=== PATIENT | male | born 2000 | race Caucasian/White ===

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

== ENCOUNTER 2022-04-28 20:57 | Inpatient (IN) ==
[2022-04-28 22:15] LABS: Basophils # (auto) 0.04 K/uL (0-0.2); Basophils % (auto) 0.6 %; Eosinophils # (auto) 0.19 K/uL (0-0.50); Eosinophils % (auto) 2.7 %; Hematocrit (blood only) 42.7 % (40.1-51.0); Hemoglobin 15.3 g/dl (14.0-18.0); Immature Granulocytes # (auto) 0.01 K/uL (0.00-0.02); Immature Granulocytes % (auto) 0.1 %; Lymphocytes # (auto) 1.25 K/uL (1.2-3.4); Mean Corpuscular Hemoglobin 32.4 pg (25.0-34.0); Mean Corpuscular Hgb Conc 35.8 g/dL (32.0-36.0); Mean Corpuscular Volume 90.5 fL (80.0-100.0); Mean Platelet Volume 9.5 fL (9.4-12.4); Monocytes # (auto) 0.67 K/uL (0.24-0.82); Monocytes % (auto) 9.6 %; Platelet Count 218 K/uL (130-400); RDW Coefficient of Variation 11.7 % (11.5-14.5); RDW Standard Deviation 38.5 fL (36.4-46.3); Red Blood Count 4.72 M/uL (4.63-6.08); White Blood Count 6.96 K/ul (4.8-10.8)
[2022-04-28 22:53] LABS: Albumin Globulin Ratio 2.8 (0.9-2); Albumin Level 5.3 gm/dl (3.4-5.0); BUN Creatinine Ratio 8.8 (10-20); Bilirubin,Total 1.3 mg/dl (0.2-1.0); Calcium 10.4 mg/dl (8.5-10.1); Creatinine Clr Calc Pharmacy 115.9 ml/min; Est GFR (African American) 118.7 ml/min; Est GFR (Non-African American) 102.4 ml/min; Globulin 1.9 gm/dl (2.5-4.0); Total Protein 7.2 gm/dl (6.0-8.3)
[2022-04-29] MEDS ORDERED: diphenhydrAMINE 50 MG/ML VIAL IV STA (00:10)
[2022-04-29] MEDS ORDERED: ONDANSETRON INJ 2 MG/ML 2 ML VIAL IV STA ×2 (00:10→03:47)
[2022-04-29] MEDS ORDERED: SODIUM CHLORIDE 0.9% 1000ML 1,000 ML IV ONE (00:10)
--- NOTE | 2022-04-29 00:15 | Emergency Department Note ---
Impression & Plan Acute cholecystitis ED Provider Note Name: ABBI GOODRICH Age: 22 Sex: M Arrives Via: Walk-In Informant: Patient and his mother ED Provider: Arik Pereira MD Chief Complaint: Abdominal pain Impression: As per impressions above Medical Decision Makin-year-old male with a recent history of sobering up from alcohol and drug abuse arrives for evaluation of 1 week of epigastric/right upper quadrant abdominal pain that comes in waves. He was seen in ER a week ago and was told he had gallstones and sludge. Pain has continued and even worsen. On exam patient has epigastric/right upper quadrant tenderness palpation. His LFTs are slightly elevated. I obtained a CT scan of the abdomen pelvis which was read as periportal edema consistent with rapid hydration. I am concerned that this is actually infectious etiology. An ultrasound was obtained which is concerning for acute cholecystitis. I discussed the case with general surgery and they will bring him in for further management. He was given Mefoxin IV. Pain is controlled with IV fluids and some Zofran. He declined to have narcotic pain medications given his history. Prior Medical Record and Triage/Nursing Notes reviewed by Me Additional history obtained from chart and mother Differentials:Acute cholecystitis, bile duct obstruction, pancreatitis, gastritis, peptic ulcer disease, dissection, hepatitis, multiple other pathologies considered. Vital Signs: reviewed and remarkable for bradycardia Interventions: mefoxin IV, zofran iv, nss bolus Labs:Reviewed and remarkable for elevated lfts Imaging:CT as per stat rad was read as per portal edema. Ultrasound read per stat read is consistent with acute cholecystitis. Consults:Dr Roberto [place] Gen Surg Plan: Disposition:Hospitalization. Condition: Good History of Present Illness: 22-year-old gentleman arrives for evaluation of abdominal pain. Patient with essentially a week and a half of right upper quadrant abdominal pain that comes in waves. Primarily localized but does at times radiate through to his back. Associated with nausea and repetitive vomiting. He was seen in an ER in [place] last week diagnosed with gallstones and advised to follow-up with the surgeon. Patient notes that pain is gotten significantly worse since then. Not using any medications. Denies any falls, trauma, injuries. Tonight pain was so severe he came back to the ER. No fevers, chills, chest pain, shortness of breath, c urrent back pain, flank pain, lower abdominal pain, urinary/bowel symptoms, leg swelling, calf pain, rashes or any other signs or symptoms. No medications prior to arrival. Nothing makes better or worse. No previous abdominal surgeries. He does note a strong family history of gallbladder problems including a brother who had his gallbladder out when he was 6 months old. He states his father side also had some gallbladder cancer. ROS: See above HPI for pertinent positives & negatives. A total of 10 systems reviewed and were otherwise negative. Past Medical History:Alcohol and drug addiction Past Surgical History:No previous surgeries Family History:Brother with gallbladder removal at 6 months. Father side of family had colon cancer, gallbladder cancer, breast cancer. Social History:Lives with mother. Smokes cigarettes. Sober/clean for 1 month from alcohol/cocaine/meth addiction. Home Medications:No daily medications Allergies:No known drug allergies Vitals:Blood Pressure: 123/83, Pulse 44, RR 20, T 36.8C, O2 100% on RA Physical Exam: GENERAL: Patient is dehydrated appearing and in mild distress. EYES: No scleral icterus, unremarkable pupils. ENT: Mucous membranes moist, no nasal congestion. NECK: No masses appreciated, nomeningismus, trachea is midline. RESPIRATORY: No dyspnea. Clear to auscultation and equal bilaterally. No wheeze, no rhonchi. CARDIOVASCULAR: bradycardic.No murmurs, rubs, gallops appreciated. GASTROINTESTINAL: Epigastric & RUQ abdominal TTP. Otherwise abdomen soft, non- tender, no peritonitis.Bowel sounds positive.No masses appreciated. BACK: No midline tenderness, no CVA tenderness EXTREMITIES: Normal motion all extremities, no cyanosis, no edema. NEUROLOGIC: Alert and oriented, no acute motor or sensory deficits, no focal weakness, cranial nerves grossly intact. SKIN: No rash, no jaundice, no diaphoresis. PSYCH: Appropriate GCS: 15 ED Course: Times/Reassessments: Stable declines pain meds but agreeable to further IV fluids and Zofran. Agreeable to hospitalization Arik Pereira MD Past Med/Surg History Social History Smoking Status: Never smoker Tobacco Type: Cigarettes Preferred Language: Hungarian Feels Safe at Home: Yes Allergies Allergies Allergy/AdvReac Type Severity Reaction Status Date / Time No Known Allergies Allergy Unverified 01/01/20 15:37 Results & Data (ED) Vital Signs Vital Signs - 24 hr 04/28/22 21:06 04/28/22 23:15 04/29/22 01:00 Temperature 36.8 C Temperature Source Temporal Artery Scan Pulse Rate 57 L Pulse Rate [Apical] 44 L 41 L Respiratory Rate 18 20 17 Respiratory Effort / Characteristics Non-Labored Spontaneous Non-Labored Spontaneous Non-Labored Spontaneous Respiratory Depth Normal Normal Normal Respiratory Pattern Regular Regular Blood Pressure 121/78 Blood Pressure [Right Arm] 123/83 121/89 Blood Pressure Mean 92 Blood Pressure Mean [Right Arm] 96 99 Pulse Oximetry 98 20 L 99 Oxygen Delivery Method Room Air Room Air Sepsis Recent Fever Within 48 Hours No Sepsis New/Unexplained Change in Mental Status N/A Sepsis Action Taken by Nursing No Action Required 04/29/22 03:40 04/29/22 05:00 Temperature Temperature Source Pulse Rate Pulse Rate [Apical] 55 L 40 L Respiratory Rate 16 20 Respiratory Effort / Characteristics Respiratory Depth Respiratory Pattern Blood Pressure Blood Pressure [Right Arm] 120/83 125/82 Blood Pressure Mean Blood Pressure Mean [Right Arm] 95 96 Pulse Oximetry 98 98 Oxygen Delivery Method Room Air Room Air Sepsis Recent Fever Within 48 Hours Sepsis New/Unexplained Change in Mental Status Sepsis Action Taken by Nursing Laboratory Data Result diagrams: 04/29/22 05:54 04/29/22 05:54 Lab Results 04/28/22 04/28/22 04/29/22 Range/Units 22:09 22:09 05:05 WBC 6.96 (4.8-10.8) K/ul RBC 4.72 (4.63-6.08) M/uL Hgb 15.3 (14.0-18.0) g/dl Hct 42.7 (40.1-51.0) % MCV 90.5 (80.0-100.0) fL MCH 32.4 (25.0-34.0) pg MCHC 35.8 (32.0-36.0) g/dL RDW Std Deviation 38.5 (36.4-46.3) fL RDW Coeff of Annalise 11.7 (11.5-14.5) % Plt Count 218 (130-400) K/uL MPV 9.5 (9.4-12.4) fL Immature Gran % (Auto) 0.1 % Neut % (Auto) 69.0 % Lymph % (Auto) 18.0 % [place] % (Auto) 9.6 % Eos % (Auto) 2.7 % Baso % (Auto) 0.6 % Neut # (Auto) 4.80 (1.4-6.5) K/uL Lymph # (Auto) 1.25 (1.2-3.4) K/uL [place] # (Auto) 0.67 (0.24-0.82) K/uL Eos # (Auto) 0.19 (0-0.50) K/uL Baso # (Auto) 0.04 (0-0.2) K/uL Immature Gran # (Auto) 0.01 (0.00-0.02) K/uL Sodium 141 (136-145) mmol/L Potassium 4.0 (3.5-5.1) mmol/L Chloride 104 (98-107) mmol/L Carbon Dioxide 30 (21-32) mmol/L Anion Gap 7 (3-11) BUN 9 (6-23) mg/dl Creatinine 1.02 (0.6-1.4) mg/dl Est Cr Clr Drug Dosing 115.9 ml/min Est GFR ( Amer) 118.7 ml/min Est GFR (Non-Af Amer) 102.4 ml/min BUN/Creatinine Ratio 8.8 L (10-20) Glucose 93 (70-99(Fasting)) mg/dl Calcium 10.4 H (8.5-10.1) mg/dl Total Bilirubin 1.3 H (0.2-1.0) mg/dl AST 129 H (13-39) U/L ALT 91 H (7-52) U/L Alkaline Phosphatase 96 (34-104) U/L Total Protein 7.2 (6.0-8.3) gm/dl Albumin 5.3 H (3.4-5.0) gm/dl Globulin 1.9 L (2.5-4.0) gm/dl Albumin/Globulin Ratio 2.8 H (0.9-2) Lipase 38 (11-82) U/L SARS-CoV-2, RNA, NAAT NEGATIVE (NEGATIVE) 04/29/22 04/29/22 Range/Units 05:54 05:54 WBC 5.49 (4.8-10.8) K/ul RBC 4.57 L (4.63-6.08) M/uL Hgb 14.7 (14.0-18.0) g/dl Hct 41.4 (40.1-51.0) % MCV 90.6 (80.0-100.0) fL MCH 32.2 (25.0-34.0) pg MCHC 35.5 (32.0-36.0) g/dL RDW Std Deviation 39.0 (36.4-46.3) fL RDW Coeff of Annalise 11.8 (11.5-14.5) % Plt Count 212 (130-400) K/uL MPV 9.8 (9.4-12.4) fL Immature Gran % (Auto) 0.2 % Neut % (Auto) 67.7 % Lymph % (Auto) 17.3 % [place] % (Auto) 11.1 % Eos % (Auto) 3.3 % Baso % (Auto) 0.4 % Neut # (Auto) 3.72 (1.4-6.5) K/uL Lymph # (Auto) 0.95 L (1.2-3.4) K/uL [place] # (Auto) 0.61 (0.24-0.82) K/uL Eos # (Auto) 0.18 (0-0.50) K/uL Baso # (Auto) 0.02 (0-0.2) K/uL Immature Gran # (Auto) 0.01 (0.00-0.02) K/uL Sodium 141 (136-145) mmol/L Potassium 4.0 (3.5-5.1) mmol/L Chloride 108 H (98-107) mmol/L Carbon Dioxide 27 (21-32) mmol/L Anion Gap 6 (3-11) BUN 8 (6-23) mg/dl Creatinine 1.02 (0.6-1.4) mg/dl Est Cr Clr Drug Dosing 115.9 ml/min Est GFR ( Amer) 118.7 ml/min Est GFR (Non-Af Amer) 102.4 ml/min BUN/Creatinine Ratio 7.8 L (10-20) Glucose 96 (70-99(Fasting)) mg/dl Calcium 9.6 (8.5-10.1) mg/dl Total Bilirubin 2.5 H D (0.2-1.0) mg/dl AST 175 H (13-39) U/L ALT 165 H (7-52) U/L Alkaline Phosphatase 94 (34-104) U/L Total Protein 6.5 (6.0-8.3) gm/dl Albumin 4.7 (3.4-5.0) gm/dl Globulin 1.8 L (2.5-4.0) gm/dl Albumin/Globulin Ratio 2.6 H (0.9-2) Lipase 22 (11-82) U/L SARS-CoV-2, RNA, NAAT (NEGATIVE) Administered Medications Lactated Ringer's (Lr) 1,000 mls @ 125 mls/hr IV .Q8H ADDY Stop: 05/29/22 05:14 Last Admin: 04/29/22 06:38 Dose: 125 mls/hr Documented By: OMAIRA Discontinued Medications Diphenhydramine HCl (Diphenhydramine 50 Mg/Ml Vial) 50 mg IV NOW STA Stop: 04/29/22 00:11 Last Admin: 04/29/22 00:21 Dose: 50 mg Documented By: JOSH Sodium Chloride (Nss 1000ml) 1,000 mls @ 999 mls/hr IV .Q1H1M ONE Stop: 04/29/22 01:10 Last Infusion: 04/29/22 02:49 Dose: 0 mls/hr Documented By: Admin: 04/29/22 00:20 Dose: 999 mls/hr Documented By: JOSH Cefoxitin Sodium (Mefoxin) 2,000 mg in 60 mls @ 100 mls/hr IV NOW STA Stop: 04/29/22 05:19 Last Infusion: 04/29/22 05:39 Dose: 0 mls/hr Documented By: Admin: 04/29/22 05:03 Dose: 100 mls/hr Documented By: OMAIRA Ioversol (Ioversol 350 Mg 100ml Prefilled Syringe) 93 ml IV ONCE ONE Stop: 04/29/22 01:32 Last Admin: 04/29/22 01:32 Dose: 93 ml Documented By: CHINA Ondansetron HCl (Ondansetron Inj 2 Mg/Ml 2 Ml Vial) 4 mg IV NOW STA Stop: 04/29/22 00:11 Last Admin: 04/29/22 00:21 Dose: 4 mg Documented By: JOSH Ondansetron HCl (Ondansetron Inj 2 Mg/Ml 2 Ml Vial) 4 mg IV NOW STA Stop: 04/29/22 03:48 Last Admin: 04/29/22 03:53 Dose: 4 mg Documented By: OMAIRA Discharge Plan Visit Data Chief Complaint: Abdominal Pain Stated Complaint: ABDOMINAL PAIN, KIDNEY PAIN ED Provider: Arik Pereira Discharge Problem: Acute cholecystitis Forms Stand Alone Forms: [facility] Referrals Referrals: PCP,NO [Primary Care Provider] -
[2022-04-29] MEDS ORDERED: IOVERSOL 350 MG 100mL Prefilled Syringe IV ONE (01:31)
[2022-04-29] MEDS ORDERED: cefOXitin 2,000 MG/60 ML BAG IV STA (04:44)
[2022-04-29] MEDS ORDERED: MoRPHine SULFATE 4 MG/ML 1 ML CARP\\VIAL IV PRN ×2 (05:11→16:57)
--- NOTE | 2022-04-29 05:11 | History & Physical Report ---
Date of Service April 29, 2022 Assessment & Plan (1) Acute cholecystitis: Plan: Due to the patient's clinical presentation, labs, and imaging we will admit the patient to the hospital proceeding as follows: Provide analgesics provide antiemetics Provide hydration with IV fluids We will guidance adviser antibiotics. The treating emergency physician has already administered cefoxitin which we will continue We will maintain n.p.o. status We will repeat his labs including a CBC, CMP, and lipase Due to concern for cholecystitis noted on ultrasound I have tentatively added the patient to Dr. Mejia's schedule for a cholecystectomy and possible cholangiogram later today. Additional recommendations be forthcoming based on his repeat labs, operative findings, and his postoperative course. Will use SCDs for DVT prevention, no chemical means due to planned surgery He will be a level 1 full code History of Present Illness Chief Complaint: Abdominal pain Primary Care Provider: NO PCP This is a 22-year-old male who presented to [facility] emergency department secondary to abdominal pain. Patient notes that the pain is nonradiating and primarily located the epigastric and right upper quadrant. He does not note any modifying factors other than that it seems to be worse after eating. The patient notes that he has noted some postprandial pain for approximately 1 month. He notes that this issue has been getting worse over the past week and became unbearable over the past 24 hours prompting his visit to the emergency department. He does note that he was previously in [place] where he did have similar complaints and he did have a gallbladder ultrasound at which time he was told he had gallstones. Patient denies any prior history of abdominal surgeries. In the emergency department the patient had labs and imaging which I independently reviewed. A CT scan of the abdomen pelvis was performed. This showed patient had mild periportal edema with a normal-appearing appendix. Patient had a gallbladder ultrasound that showed that the gallbladder was distended with sludge and tiny gallstones and pericholecystic edema. The gallbladder wall was thickened to approximately 6 mm and a positive sonographic Rodrigues sign was noted. The common bile duct was not noted to be dilated. The interpreting radiologist felt that this represented acute cholecystitis without biliary ductal dilatation. CBC revealed white blood cell count, hemoglobin, hematocrit, platelet count were all normal. Chemistry profile showed sodium, potassium, BUN, and creatinine were normal. Patient's total bilirubin is elevated at 1.3. His AST and ALT were elevated at 129 and 91. Alkaline phosp hatase was normal. There is no elevation of patient's lipase. A COVID test has been ordered and is pending. 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 He notes that he has not consumed these substances and has been clean for approximately 6 months. At the time of my interview the patient was resting comfortably in bed and he was in no distress. Concerning past medical history other than history of substance abuse patient denies any additional medical problems. Patient denies any past surgical history. Patient has a history of substance abuse as noted above. Allergies Allergy/AdvReac Type Severity Reaction Status Date / Time No Known Allergies Allergy Unverified 01/01/20 15:37 Past Med/Surg History Medical History History of alcohol abuse History of cocaine abuse Smoker Social History Tobacco Type: Cigarettes Preferred Language: Belarusian Feels Safe at Home: Yes Review of Systems Constitutional: no fever and no chills Eyes: + corrective lenses; no eye pain Ear, Nose, Mouth, Throat: no ear pain Respiratory: no cough and no dyspnea Cardiovascular: no chest pain Gastrointestinal: + abdominal pain, + nausea and + vomiting Genitourinary: no dysuria Musculoskeletal: no back pain Integumentary: no rash Neurologic: no localized weakness Physical Exam Constitutional: WD/WN, vitals as above Eyes: + anicteric sclerae Wears glasses ENMT: Ears: no hearing impairment and no external ear abnormality Sublingual jaundice is absent Neck: trachea midline Respiratory: normal respiratory effort, lungs clear to auscultation Cardiovascular: Rate/Rhythm: regular rate and regular rhythm Gastrointestinal (Abdomen): Abdomen is soft, nondistended, nonrigid. Bowel sounds are present. There is no rebound tenderness or guarding but patient did have pain with palpation in the right upper quadrant. Musculoskeletal: No calf tenderness Skin: no rashes Neurologic: moves all extremities Psychiatric: A+Ox3, euthymic affect Results & Data Results & Data ([facility]) Vital Signs (Past 12 Hours) Vital Signs Temp Pulse Pulse Resp BP BP Pulse Ox 04/29/22 03:40 55 L 16 120/83 98 04/29/22 01:00 41 L 17 121/89 99 04/28/22 23:15 44 L 20 123/83 20 L 04/28/22 21:06 36.8 C 57 L 18 121/78 98 O2 Del Method 04/29/22 03:40 Room Air 04/29/22 01:00 04/28/22 23:15 Room Air 04/28/22 21:06 Room Air Supervising Physician Co-Signing Physician Notes I personally saw and evaluated the patient with Thanh Campoverde PA-C and agree with the assessment and plan. 22-year-old male with acute cholecystitis, elevated LFTs concerning for choledocholithiasis Admit to surgery CT and ultrasound images and results personally viewed by me Keep n.p.o., give antibiotics, GI consult for his elevated LFTs Pain and nausea control as needed We will plan on laparoscopic cholecystectomy, possible open, possible intraoperative cholangiogram today Consent was obtained, risk discussed including bleeding, infection, bile leak, ductal injury PG Care Time/CCT Total # of Minutes Spent Total Time Spent with Patient: Total time spent is greater than 50% in coordination of care (as documented) at patient's floor/unit and/or counseling patient: Coding Level of Care Code 21300 Initial Inpt Care Lvl 3 Diagnoses Acute cholecystitis K81.0
[2022-04-29 06:11] LABS: Basophils # (auto) 0.02 K/uL (0-0.2); Basophils % (auto) 0.4 %; Eosinophils # (auto) 0.18 K/uL (0-0.50); Eosinophils % (auto) 3.3 %; Hematocrit (blood only) 41.4 % (40.1-51.0); Hemoglobin 14.7 g/dl (14.0-18.0); Immature Granulocytes # (auto) 0.01 K/uL (0.00-0.02); Immature Granulocytes % (auto) 0.2 %; Lymphocytes # (auto) 0.95 K/uL (1.2-3.4); Lymphocytes % (auto) 17.3 %; Mean Corpuscular Hemoglobin 32.2 pg (25.0-34.0); Mean Corpuscular Hgb Conc 35.5 g/dL (32.0-36.0); Mean Corpuscular Volume 90.6 fL (80.0-100.0); Mean Platelet Volume 9.8 fL (9.4-12.4); Monocytes # (auto) 0.61 K/uL (0.24-0.82); Monocytes % (auto) 11.1 %; Neutrophils # (auto) 3.72 K/uL (1.4-6.5); Neutrophils % (auto) 67.7 %; Platelet Count 212 K/uL (130-400); RDW Coefficient of Variation 11.8 % (11.5-14.5); Red Blood Count 4.57 M/uL (4.63-6.08); White Blood Count 5.49 K/ul (4.8-10.8)
[2022-04-29 06:37] LABS: Albumin Globulin Ratio 2.6 (0.9-2); Albumin Level 4.7 gm/dl (3.4-5.0); BUN Creatinine Ratio 7.8 (10-20); Bilirubin,Total 2.5 mg/dl (0.2-1.0); Calcium 9.6 mg/dl (8.5-10.1); Creatinine Clr Calc Pharmacy 115.9 ml/min; Est GFR (African American) 118.7 ml/min; Est GFR (Non-African American) 102.4 ml/min; Globulin 1.8 gm/dl (2.5-4.0); Total Protein 6.5 gm/dl (6.0-8.3)
[2022-04-29] MEDS: LACTATED RINGER'S 1,000 ML IV SCH ×3 (06:38→18:18)
--- NOTE | 2022-04-29 07:45 | Ultrasound Report ---
ULTRASOUND RIGHT UPPER QUADRANT ABDOMEN CLINICAL HISTORY: Right upper quadrant abdominal pain. COMPARISON STUDY: Abdominal CT dated 04/29/2022. TECHNIQUE: Real-time, grayscale, and color flow sonography of the right upper quadrant of the abdomen was performed. Images are reviewed in the transverse and longitudinal planes. FINDINGS: Liver: The liver is top normal in size. Echotexture is normal. There is no intrahepatic biliary ducta l dilatation. The main portal vein is patent. Gallbladder: The gallbladder is distended and filled with sludge and stones. The gallbladder wall is thickened and edematous measuring up to 6 mm. There is trace pericholecystic fluid. A sonographic Mur phy's sign is reportedly present. The common bile duct measures up to 0.4 cm in diameter. Pancreas: Visualized portions of the pancreatic head and body are normal in appearance. The splenic v ein is patent. Right kidney: Survey images of the right kidney demonstrate normal size and echotexture. There is no hydronephrosis. Ascites: None. IMPRESSION: 1. Cholelithiasis and biliary sludge within a distended gallbladder. Sonographic findings are typical for acute cholecystitis. Clinical correlation will be required. If clinically warranted a nuclear he patobiliary scan would be confirmatory. 2. There is no intra or extrahepatic biliary ductal dilatation. ACT 112: Negative or not required by law. Electronically signed by: Fabricio Baltazar M.D. 04/29/2022 7:44 AM
--- NOTE | 2022-04-29 07:52 | CT Scan Report ---
ABDOMEN AND PELVIS CT WITH IV CONTRAST CT DOSE: 304.23 mGy.cm HISTORY: Right upper quadrant abdominal pain, vomiting, known gallstones TECHNIQUE: Multiaxial CT images of the abdomen and pelvis were performed following the use of intrave nous contrast. A dose lowering technique was utilized adhering to the principles of ALARA. COMPARISON STUDY: Abdomen and pelvis CT 01/01/2020. FINDINGS: The lung bases are clear. No pneumoperitoneum. No pneumatosis. Bilateral L5 spondylolysis. Mild periportal edema noted within the liver. There is also trace pericholecystic fluid adjacent to t he hepatic surface. This also favors the periportal edema. These findings are similar to the prior st udy. No gallbladder wall thickening. No hepatic or splenic masses. The adrenal glands and pancreas un remarkable. Stable 6 mm hypodense lesion within the left kidney. This is technically too small to radha racterize but favors a cyst given the stability. No hydronephrosis. There is a punctate calcification within the right deep pelvis on image 417 which favors a phlebolith. A distal ureteral stone is not excluded. No bladder wall thickening. No pelvic free fluid. No bowel wall thickening or obstruction. Normal appendix. No retroperitoneal lymphadenopathy. Normal caliber abdominal aorta. The main portal vein is patent. IMPRESSION: 1. Mild periportal edema and trace pericholecystic fluid, unchanged. This could be due to overhydrati on. Recommend correlation with LFTs. This is similar to the prior study. 2. No bowel wall thickening or obstruction. 3. Normal appendix. 4. There is a punctate calcification within the right deep pelvis which favors a phlebolith. No right -sided hydronephrosis. A distal ureteral stone is considered less likely but not entirely excluded. R ecommend correlation for right flank pain. ACT 112: Negative or not required by law. Electronically signed by: Bienvenido Hamilton M.D. 04/29/2022 7:50 AM
--- NOTE | 2022-04-29 09:44 | Gastrointestinal Consultation ---
Date of Consultation April 29, 2022 Assessment & Plan (1) Acute cholecystitis: 22 year old male admitted with abdominal pain, nausea, imaging concerning for gallstones, distended gallbladder but no report of biliary ductal dilation. GI asked to evaluate for elevated LFTs w/ Tbili 2.5 AST/ALT 175/165. Appears patient is scheduled for CCY today NPO As no evidence of biliary dilation on imaging would recommend either - MRCP today - IOC Pending results, will tentatively list ERCP for Thursday Analgesia PRN Antiemetics PRN Thank you for allowing us to participate in the care of this patient. Please call with any acute changes, questions or concerns. Please see addendum below with additional recommendation from my supervising physician. Supervising Physician Co-Signing Physician Notes I have personally seen and examined the patient with DINAH Johnson. Her note reflects my exam and findings. I agree with her impression and plan. Will await results of betty and post op course to determine need for ERCP. Cipriano Dumont M.D. History of Present Illness Reason for Consultation: elevated LFTs Requesting Physician: Roberto Attending Physician: William Mejia, DO History of Present Illness 22 year old male with history of ETOH abuse, admitted through the ED with abdominal pain. GI was consulted for elevated LFTs. Of note, general surgery has surgical plan today for CCY per patient/family. Pt is drowsy this AM and provides limited history but has intermittent abd pain for at least a month. This became worse, sought ED care. Pain is epigastric, RUQ in location. There is nausea, vomiting. This AM, symptoms fairly more controlled. He suggests sobriety from ETOH and other substances x month. Has not been told he has liver conditions in the past TB 1.1 --> 2.5 AST 129 --> 175 ALT 91 --> 165 ALKP 96 --> 94 Lipase 22 AD US 2021: . Cholelithiasis and biliary sludge within a distended gallbladder. Sonographic findings are typical for acute cholecystitis. Clinical correlation will be required. If clinically warranted a nuclear hepatobiliary scan would be confirmatory.There is no intra or extrahepatic biliary ductal dilatation. CTAP 2021: 1. Mild periportal edema and trace pericholecystic fluid, unchanged. This could be due to overhydration. Recommend correlation with LFTs. This is similar to the prior study.No bowel wall thickening or obstruction.Normal appendix.There is a punctate calcification within the right deep pelvis which favors a phlebolith. No right-sided hydronephrosis. A distal ureteral stone is considered less likely but not entirely excluded. Recommend correlation for right flank pain. Allergies Allergy/AdvReac Type Severity Reaction Status Date / Time No Known Allergies Allergy Unverified 01/01/20 15:37 Patient History Medical History History of alcohol abuse History of cocaine abuse Smoker Social History Tobacco Type: Cigarettes Preferred Language: Irish Feels Safe at Home: Yes Review of Systems Review of Systems: All systems reviewed & are unremarkable except as noted in HPI & below Physical Exam Constitutional: WD/WN, vitals as above Respiratory: normal respiratory effort, lungs clear to auscultation Cardiovascular: Rate/Rhythm: regular rate and regular rhythm Gastrointestinal (Abdomen): Inspection/Auscultation: abdomen normal to inspection and normal bowel sounds Percussion/Palpation: + abdomen tender and abdomen soft; no guarding and abdomen not rigid Skin: no rashes, warm and dry Results & Data ([facility]) Vital Signs (Past 12 Hours) Vital Signs Pulse Pulse Resp BP BP Pulse Ox O2 Del Method 04/29/22 07:00 38 L 14 96 Room Air 04/29/22 07:00 121/81 04/29/22 06:45 38 L 18 96 Room Air 04/29/22 05:00 40 L 20 125/82 98 Room Air 04/29/22 03:40 55 L 16 120/83 98 Room Air 04/29/22 01:00 41 L 17 121/89 99 04/28/22 23:15 44 L 20 123/83 20 L Room Air Laboratory Results 04/29/22 04/29/22 04/29/22 Range/Units 05:54 05:54 05:05 WBC 5.49 (4.8-10.8) K/ul RBC 4.57 L (4.63-6.08) M/uL Hgb 14.7 (14.0-18.0) g/dl Hct 41.4 (40.1-51.0) % MCV 90.6 (80.0-100.0) fL MCH 32.2 (25.0-34.0) pg MCHC 35.5 (32.0-36.0) g/dL RDW Std Deviation 39.0 (36.4-46.3) fL RDW Coeff of Annalise 11.8 (11.5-14.5) % Plt Count 212 (130-400) K/uL MPV 9.8 (9.4-12.4) fL Immature Gran % (Auto) 0.2 % Neut % (Auto) 67.7 % Lymph % (Auto) 17.3 % Moore % (Auto) 11.1 % Eos % (Auto) 3.3 % Baso % (Auto) 0.4 % Neut # (Auto) 3.72 (1.4-6.5) K/uL Lymph # (Auto) 0.95 L (1.2-3.4) K/uL Moore # (Auto) 0.61 (0.24-0.82) K/uL Eos # (Auto) 0.18 (0-0.50) K/uL Baso # (Auto) 0.02 (0-0.2) K/uL Immature Gran # (Auto) 0.01 (0.00-0.02) K/uL Sodium 141 (136-145) mmol/L Potassium 4.0 (3.5-5.1) mmol/L Chloride 108 H (98-107) mmol/L Carbon Dioxide 27 (21-32) mmol/L Anion Gap 6 (3-11) BUN 8 (6-23) mg/dl Creatinine 1.02 (0.6-1.4) mg/dl Est Cr Clr Drug Dosing 115.9 ml/min Est GFR ( Amer) 118.7 ml/min Est GFR (Non-Af Amer) 102.4 ml/min BUN/Creatinine Ratio 7.8 L (10-20) Glucose 96 (70-99(Fasting)) mg/dl Calcium 9.6 (8.5-10.1) mg/dl Total Bilirubin 2.5 H D (0.2-1.0) mg/dl AST 175 H (13-39) U/L ALT 165 H (7-52) U/L Alkaline Phosphatase 94 (34-104) U/L Total Protein 6.5 (6.0-8.3) gm/dl Albumin 4.7 (3.4-5.0) gm/dl Globulin 1.8 L (2.5-4.0) gm/dl Albumin/Globulin Ratio 2.6 H (0.9-2) Lipase 22 (11-82) U/L SARS-CoV-2, RNA, NAAT NEGATIVE (NEGATIVE) 04/28/22 04/28/22 Range/Units 22:09 22:09 WBC 6.96 (4.8-10.8) K/ul RBC 4.72 (4.63-6.08) M/uL Hgb 15.3 (14.0-18.0) g/dl Hct 42.7 (40.1-51.0) % MCV 90.5 (80.0-100.0) fL MCH 32.4 (25.0-34.0) pg MCHC 35.8 (32.0-36.0) g/dL RDW Std Deviation 38.5 (36.4-46.3) fL RDW Coeff of Annalise 11.7 (11.5-14.5) % Plt Count 218 (130-400) K/uL MPV 9.5 (9.4-12.4) fL Immature Gran % (Auto) 0.1 % Neut % (Auto) 69.0 % Lymph % (Auto) 18.0 % Moore % (Auto) 9.6 % Eos % (Auto) 2.7 % Baso % (Auto) 0.6 % Neut # (Auto) 4.80 (1.4-6.5) K/uL Lymph # (Auto) 1.25 (1.2-3.4) K/uL Moore # (Auto) 0.67 (0.24-0.82) K/uL Eos # (Auto) 0.19 (0-0.50) K/uL Baso # (Auto) 0.04 (0-0.2) K/uL Immature Gran # (Auto) 0.01 (0.00-0.02) K/uL Sodium 141 (136-145) mmol/L Potassium 4.0 (3.5-5.1) mmol/L Chloride 104 (98-107) mmol/L Carbon Dioxide 30 (21-32) mmol/L Anion Gap 7 (3-11) BUN 9 (6-23) mg/dl Creatinine 1.02 (0.6-1.4) mg/dl Est Cr Clr Drug Dosing 115.9 ml/min Est GFR ( Amer) 118.7 ml/min Est GFR (Non-Af Amer) 102.4 ml/min BUN/Creatinine Ratio 8.8 L (10-20) Glucose 93 (70-99(Fasting)) mg/dl Calcium 10.4 H (8.5-10.1) mg/dl Total Bilirubin 1.3 H (0.2-1.0) mg/dl AST 129 H (13-39) U/L ALT 91 H (7-52) U/L Alkaline Phosphatase 96 (34-104) U/L Total Protein 7.2 (6.0-8.3) gm/dl Albumin 5.3 H (3.4-5.0) gm/dl Globulin 1.9 L (2.5-4.0) gm/dl Albumin/Globulin Ratio 2.8 H (0.9-2) Lipase 38 (11-82) U/L SARS-CoV-2, RNA, NAAT (NEGATIVE)
--- NOTE | 2022-04-29 10:53 | Anesthesiology Consultation ---
Date of Service April 29, 2022 Assessment & Plan (1) Encounter for pre-operative examination: Chart Review Chart Review: Acceptable Risk for Surgery and Patient NOT seen in Pre Admission Testing Consults Requested none History Surgery Operation Date: 04/29/22 09:15 Proposed Procedures p Laparoscopic Cholecystectomy Possible Open with Cholangiogram - William Mejia DO Operation Date: 04/30/22 14:15 Proposed Procedures p Endoscopic Retrograde Cholangiopancreato - Jomar Larry, DO Height/Weight Height: 6 ft 2 in Weight: 73.4 kg Allergies Allergy/AdvReac Type Severity Reaction Status Date / Time No Known Allergies Allergy Unverified 01/01/20 15:37 Medications Active Medications Generic Name Dose Route Start Last Admin Trade Name Freq PRN Reason Stop Dose Admin Lactated Ringer's 1,000 mls @ 125 mls/hr 04/29/22 05:15 04/29/22 06:38 Lr IV 05/29/22 05:14 125 mls/hr .Q8H ADDY Administration Past Medical History Medical History History of alcohol abuse History of cocaine abuse Smoker Physical Exam Vital Signs Last Vital Signs Temp 36.8 C 04/28/22 21:06 Pulse 40 L 04/29/22 10:00 Resp 16 04/29/22 10:00 BP 117/71 04/29/22 10:00 Pulse Ox 96 04/29/22 10:00 O2 Del Method 04/29/22 10:00 Testing Laboratory Results 04/29/22 05:54 04/29/22 05:54
[2022-04-29] MEDS ORDERED: cefOXitin 2,000 MG in DEXTROSE 5% 50 ML IV SCH (12:00)
[2022-04-29] MEDS ORDERED: PROPOFOL IV EMULSION 10 MG/ML 20 ML VIAL IV ONE (12:42)
[2022-04-29] MEDS ORDERED: MIDAZOLAM HCL 1 MG/ML 2ML VIAL ONE (12:42)
[2022-04-29] MEDS ORDERED: ROCURONIUM BROMIDE 10 MG/ML 5 ML VIAL IV ONE (12:42)
[2022-04-29] MEDS ORDERED: LIDOCAINE 2% MPF LOCAL 5 ML VIAL INFIL ONE (12:42)
[2022-04-29] MEDS ORDERED: fentaNYL citrate 100 MCG/2 ML VIAL ONE (12:42)
[2022-04-29] MEDS ORDERED: ePHEDrine sulfate 50 MG/ML AMP IV PRN (12:55)
[2022-04-29] MEDS ORDERED: ONDANSETRON INJ 2 MG/ML 2 ML VIAL IV PRN (12:55)
[2022-04-29] MEDS ORDERED: PROMETHAZINE HCL 6.25 MG in SODIUM CHLORIDE 0.9% 50 ML IV PRN ×2 (12:55→20:13)
[2022-04-29] MEDS ORDERED: ATROPINE SULFATE 0.1 MG/ML 10ML SYR IV PRN (12:55)
[2022-04-29] MEDS ORDERED: HYDROmorphone INJ 2 MG/ML SYR/VIAL IV PRN (12:55)
[2022-04-29] MEDS ORDERED: BUPIVACAINE/EPINEPHRINE 0.25% 1:200,000 30 ML VIAL ONE (13:20)
[2022-04-29] MEDS ORDERED: FAMOTIDINE/PF 20 MG/2 ML VIAL IV ONE (13:31)
[2022-04-29] MEDS ORDERED: GLYCOPYRROLATE 0.2 MG/ML VIAL ONE (14:39)
[2022-04-29] MEDS ORDERED: NEOSTIGMINE METHYLSULFATE 1 MG/ML 10ML VIAL ONE (14:39)
[2022-04-29] MEDS ORDERED: KETOROLAC 30 MG/ML VIAL ONE (14:39)
[2022-04-29] MEDS ORDERED: DEXAMETHASONE SOD INJ 4 MG/ML VIAL ONE (14:39)
[2022-04-29] MEDS ORDERED: ONDANSETRON INJ 2 MG/ML 2 ML VIAL ONE (14:39)
--- NOTE | 2022-04-29 14:54 | Post Operative Brief Note ---
PG Immediate Post Op with CF Date of Surgery April 29, 2022 Pre & Post Diagnosis Operation Date: 04/29/22 09:15 Pre-Op Diagnosis: Acute CHOLECYSTITIS, concern for choledocholithiasis Post-Op Diagnosis: Acute CHOLECYSTITIS, concern for choledocholithiasis I identified the patient and participated in the time-out.: Yes Procedure Operation Date: 04/29/22 09:15 Actual Procedures p Laparoscopic Cholecystectomy with intraoperative cholangiogram(Not Applicable) - William Mejia DO Surgeon William Mejia DO Magazine Editor Ahsan Moody PA-C Estimated Blood Loss 5 Findings See Below Acutely inflamed, edematous gallbladder consistent with acute cholecystitis Normal filling of the common bile duct and duodenum, normal backfilling of the right and left hepatic ducts Specimens Specimen Description: A. Gall Bladder Anesthesia Type General Complications none Disposition Disposition: Recovery Room
[2022-04-29] MEDS ORDERED: SUGAMMADEX SODIUM 200 MG/2 ML VIAL IV ONE (15:00)
--- NOTE | 2022-04-29 15:02 | Fluoroscopy Report ---
INTRAOPERATIVE RADIOGRAPHS CLINICAL HISTORY: Intraoperative cholangiogram. Fluoroscopy time: 3 seconds. FINDINGS: 3 spot fluoroscopic views of the right upper quadrant from an intraoperative cholangiogram are correlated with abdominal ultrasound dated 04/29/2022. Cholecystectomy clips are noted. There is s mooth contrast opacification of the common bile duct. No intra or extrahepatic biliary ductal dilatat ion is identified. There are no intraluminal filling defects seen to suggest choledocholithiasis. The re is smooth passage of contrast into the duodenum. IMPRESSION: Intraoperative cholangiogram images as above. Electronically signed by: Fabricio Baltazar M.D. 04/29/2022 3:01 PM
--- NOTE | 2022-04-29 15:02 | Operative Report ---
PG Post Operative Report Pre & Post Diagnosis Operation Date: 04/29/22 09:15 Pre-Op Diagnosis: Acute CHOLECYSTITIS, concern for choledocholithiasis Post-Op Diagnosis: Acute CHOLECYSTITIS I identified the patient and participated in the time-out.: Yes Procedure Operation Date: 04/29/22 09:15 Actual Procedures p Laparoscopic Cholecystectomy with intraoperative cholangiogram(Not Applicable) - William Mejia DO Surgeon William Mejia DO Distributing Clerk Ahsan Moody PA-C Estimated Blood Loss 5 Findings See Below Acutely inflamed, edematous gallbladder consistent with acute cholecystitis Normal filling of the common bile duct and duodenum, normal backfilling of the right and left hepatic ducts Fluids see anesthesia record Specimens Gallbladder to pathology Drains None Anesthesia Type General Complications none Disposition Disposition: Recovery Room Indications 22-year-old male with acute cholecystitis and ultrasound findings concerning for choledocholithiasis as well as elevated LFTs Description of Procedure The patient was brought to the operating room and placed in the supine position with both arms extended. At this time he underwent general endotracheal anesthesia without any problems. He was given appropriate pre-operative antibiotics. His abdomen prepped and draped in the usual sterile fashion. A timeout was called, the procedure was verified as Laparoscopic cholecystectomy, possible open, possible intra-operative cholangiogram. Surgical, nursing and anesthesia teams agreed and the procedure was begun. After injection of 0.25% Marcaine with epinephrine, a supraumbilical vertical incision was made and carried down to the fascia using S-retractors. The abdominal wall was then elevated with towel clamps and abdomen entered using the Veress needle confirming position using the saline drop test. Pneumoperitoneum was established. 5mm trocar was placed. Laparoscope was introduced. No injury from entry into the abdomen was visualized after inspection of the abdomen. Three further ports were placed under direct visualization. One 11mm in the subxiphoid region and two 5mm in the RUQ. At this time the abdomen was inspected and the gallbladder identified. The gallbladder fundus was grasped and retracted cephalad. The gallbladder infundibulum was then grasped and retracted laterally. The gallbladder itself was acutely inflamed and edematous consistent with acute cholecystitis. The cystic duct and cystic artery were then identified and skeletonized. The critical view of safety was obtained. At this time we prepared for cholangiogram. The cystic duct was clipped high and then a ductotomy was made using scissors just below this. Bile flowed from the duct. At this point a cholangiocatheter was introduced in the abdomen through a needle incision in the upper abdomen and clipped into place. At this time performed a cholangiogram which revealed a normal-appearing cystic duct, and normal common bile duct without any filling defects, the dye reached the duodenum and there was backfilling of the right and left hepatic ducts. The cholangiogram images were performed and interpreted by myself. At this point the cystic duct and cystic artery were both then clipped twice proximally and once distally and then divided using scissors. The gallbladder was then taken off of the liver bed using electrocautery and placed in an endocatch bag and removed from the subxiphoid port. The liver bed was then inspected and no bile leak or bleeding was evident. The trocars were then removed under direct visualization and no bleeding was present. The subxiphoid port was then closed using 0-Vicryl at the fascial level. Abdomen was desufflated. The skin was then closed using 4-0 Monocryl in a subcuticular fashion. Surgical glue was applied. Needle and sponge counts were correct x 2. At this time the patient was awoken from anesthesia and extubated having remained stable throughout the entire case. The patient was then transported to PACU in stable condition. The physician registrar assistant was present scrubbed for the entire case. He was essential in positioning, prepping and draping the patient, retraction exposure, driving the laparoscope, closure of the incisions and placement the dressings. I attest to the content of the Intraoperative Record and any orders documented therein. Any exceptions are noted below.
[2022-04-29] MEDS: fentaNYL citrate 100 MCG/2 ML VIAL IV PRN ×3 (15:14→16:46)
--- NOTE | 2022-04-29 16:44 | Anesthesiology Progress Note ---
Date of Service April 29, 2022 Anesthesia Post Procedure Vital Signs Vital Signs: Temp Pulse Pulse Pulse Resp BP BP 04/29/22 16:30 74 18 127/77 04/29/22 16:15 56 L 14 123/73 04/29/22 16:00 53 L 13 122/74 04/29/22 15:45 98.1 F 53 L 13 121/77 04/29/22 15:35 54 L 12 124/77 04/29/22 15:25 53 L 14 126/74 04/29/22 15:15 51 L 17 129/80 04/29/22 15:08 97.3 F L 71 17 139/77 04/29/22 12:29 98.1 F 46 L 18 125/84 04/29/22 11:01 38 L 16 04/29/22 10:00 40 L 16 04/29/22 10:00 117/71 04/29/22 09:30 39 L 14 04/29/22 09:30 117/74 04/29/22 09:01 104/58 L 04/29/22 09:01 42 L 15 04/29/22 09:00 40 L 13 04/29/22 08:30 38 L 16 04/29/22 08:30 104/60 04/29/22 08:00 40 L 14 04/29/22 08:00 120/76 04/29/22 07:30 38 L 16 04/29/22 07:30 115/80 04/29/22 07:00 38 L 14 04/29/22 07:00 121/81 04/29/22 06:45 38 L 18 04/29/22 05:00 40 L 20 04/29/22 03:40 55 L 16 04/29/22 01:00 41 L 17 04/28/22 23:15 44 L 20 04/28/22 21:06 98.2 F 57 L 18 121/78 BP Pulse Ox O2 Del Method O2 Flow Rate 04/29/22 16:30 97 Room Air 04/29/22 16:15 94 Room Air 04/29/22 16:00 94 Room Air 04/29/22 15:45 95 Room Air 04/29/22 15:35 97 Room Air 04/29/22 15:25 100 Oxymask 9 04/29/22 15:15 100 Oxymask 9 04/29/22 15:08 100 Oxymask 9 04/29/22 12:29 97 04/29/22 11:01 96 Room Air 04/29/22 10:00 04/29/22 10:00 96 Room Air 04/29/22 09:30 04/29/22 09:30 04/29/22 09:01 04/29/22 09:01 04/29/22 09:00 04/29/22 08:30 04/29/22 08:30 04/29/22 08:00 04/29/22 08:00 04/29/22 07:30 96 Room Air 04/29/22 07:30 04/29/22 07:00 96 Room Air 04/29/22 07:00 04/29/22 06:45 96 Room Air 04/29/22 05:00 125/82 98 Room Air 04/29/22 03:40 120/83 98 Room Air 04/29/22 01:00 121/89 99 04/28/22 23:15 123/83 20 L Room Air 04/28/22 21:06 98 Room Air Pain Intensity Abdomen: Pain Intensity: 3 Transfer of Care Handoff Completed per policy Notes Mental Status: alert / awake / arousable and participated in evaluation Patient Amnestic to Procedure: Yes Nausea / Vomiting: adequately controlled Pain: adequately controlled Airway Patency, RR, SpO2: stable & adequate BP & HR: stable & adequate Hydration State: stable & adequate Anesthetic Complications: no major complications apparent and Pt Satisfied with anesthetic care
[2022-04-29] MEDS ORDERED: ACETAMINOPHEN 1,000 MG in EMPTY BAG 0 ML IV SCH (16:57)
[2022-04-29] MEDS ORDERED: oxyCODONE HCL IR 5 MG TAB (IMMEDIATE RELEASE) PO PRN (16:57)
[2022-04-29] MEDS ORDERED: IBUPROFEN 200 MG TAB PO PRN (16:57)
[2022-04-29] MEDS ORDERED: MoRPHine SULFATE 2 MG/ML CARP IV PRN (16:57)
[2022-04-29] MEDS: ACETAMINOPHEN 1,000 MG/100 ML VIAL IV SCH (18:23)
[2022-04-29] MEDS: oxyCODONE HCL IR 5 MG TAB (IMMEDIATE RELEASE) PO PRN (18:51)
[2022-04-29] MEDS: ONDANSETRON INJ 2 MG/ML 2 ML VIAL IV PRN (19:45)
[2022-04-30] MEDS: ONDANSETRON INJ 2 MG/ML 2 ML VIAL IV PRN ×2 (01:40→11:37)
[2022-04-30] MEDS: LACTATED RINGER'S 1,000 ML IV SCH (05:37)
[2022-04-30] MEDS: ACETAMINOPHEN 1,000 MG/100 ML VIAL IV SCH ×2 (05:41→14:52)
[2022-04-30 05:57] LABS: Basophils # (auto) 0.01 K/uL (0-0.2); Basophils % (auto) 0.1 %; Eosinophils # (auto) 0.01 K/uL (0-0.50); Eosinophils % (auto) 0.1 %; Hematocrit (blood only) 40.1 % (40.1-51.0); Immature Granulocytes # (auto) 0.02 K/uL (0.00-0.02); Immature Granulocytes % (auto) 0.3 %; Lymphocytes # (auto) 0.96 K/uL (1.2-3.4); Mean Corpuscular Hgb Conc 34.9 g/dL (32.0-36.0); Mean Corpuscular Volume 91.6 fL (80.0-100.0); Mean Platelet Volume 10.1 fL (9.4-12.4); Monocytes # (auto) 0.69 K/uL (0.24-0.82); Monocytes % (auto) 8.6 %; Neutrophils # (auto) 6.31 K/uL (1.4-6.5); Neutrophils % (auto) 78.9 %; Platelet Count 207 K/uL (130-400); RDW Coefficient of Variation 11.4 % (11.5-14.5); RDW Standard Deviation 38.8 fL (36.4-46.3); Red Blood Count 4.38 M/uL (4.63-6.08)
[2022-04-30 06:22] LABS: Albumin Level 4.4 gm/dl (3.4-5.0); Bilirubin Direct 0.4 mg/dl (0-0.2); Bilirubin,Total 1.3 mg/dl (0.2-1.0); Calcium 9.1 mg/dl (8.5-10.1); Creatinine Clr Calc Pharmacy 118.3 ml/min; Est GFR (African American) 121.6 ml/min; Est GFR (Non-African American) 104.9 ml/min; Potassium 4.1 mmol/L (3.5-5.1); Total Protein 5.9 gm/dl (6.0-8.3)
--- NOTE | 2022-04-30 06:30 | Gastroenterology Progress Note ---
Date of Service April 30, 2022 Assessment & Plan (1) Acute cholecystitis: Plan: 22 year old male admitted with abdominal pain, nausea, imaging concerning for gallstones, distended gallbladder but no report of biliary ductal dilation. GI asked to evaluate for elevated LFTs w/ Tbili 2.5 AST/ALT 175/165. S/P CCY, IOC negative, check AM labs Pending results of LFTs, ERCP today Analgesia PRN Antiemetics PRN Thank you for allowing us to participate in the care of this patient. Please call with any acute changes, questions or concerns. Please see addendum below with additional recommendation from my supervising physician. Admission and Anticipated Discharge Date Admission Date: April 29, 2022 Subjective Feeling well S/P CCY IOC negative Pain is improving AM labs pending Review of Systems Review of Systems: All systems reviewed & are unremarkable except as noted in HPI & below Physical Exam Constitutional: WD/WN, vitals as above Respiratory: normal respiratory effort, lungs clear to auscultation Cardiovascular: Rate/Rhythm: regular rate and regular rhythm Gastrointestinal (Abdomen): Inspection/Auscultation: abdomen normal to inspection and normal bowel sounds Percussion/Palpation: + abdomen tender and abdomen soft; no guarding and abdomen not rigid Skin: no rashes, warm and dry Results & Data ([place]) Vital Signs (Past 12 Hours) Vital Signs Temp Pulse Resp BP Pulse Ox O2 Del Method 04/30/22 04:16 37.0 C 59 L 18 114/58 L 97 Room Air 04/30/22 01:34 37.0 C 56 L 17 119/67 97 Room Air 04/29/22 22:29 36.8 C 57 L 18 109/67 98 Room Air 04/29/22 20:20 36.6 C 57 L 18 117/73 97 Room Air 04/29/22 19:08 36.5 C 66 18 123/80 96 Room Air 04/29/22 19:08 36.5 C 69 18 123/80 96 Room Air 04/29/22 18:45 36.7 C 64 17 113/69 97 Room Air
--- NOTE | 2022-04-30 08:06 | Surgery Progress Note ---
Date of Service April 30, 2022 Assessment & Plan (1) Acute cholecystitis: Plan: POD#1 laparoscopic cholecystectomy with IOC (IOC without evidence of CBD stones) Labs today reveal WBC 8 and downtrending LFTs- Tb 1.3(2.5), AST 86, ALT 151 He is having some expected jeb incisional discomfort with resolving post op nausea Will have patient trial regular diet and PO pain meds, if tolerates will anticipate discharge to home later today F/u with Dr. Mejia in clinic within 2 weeks Admission and Anticipated Discharge Date Admission Date: April 29, 2022 Supervising Physician Co-Signing Physician Notes I personally saw and evaluated the patient with Adenike Medina PA-C and agree with the assessment and plan. 22-year-old male Postoperative day 1 laparoscopic cholecystectomy with intraoperative cholangiogram He is overall recovering well from surgery Advance diet Pain control as needed His IOC was normal and his LFTs are downtrending If he is able to tolerate his diet we will plan on discharging him later today Subjective Patient is doing okay. Has some incisional pain at epigastric incision, controlled with prn pain meds. Had nausea post op, but it has improved this AM. Physical Exam Physical Exam: awake/alert, no distress Gastrointestinal (Abdomen): Inspection/Auscultation: + abdominal surgical incision (surgical dressings c/d/i) Percussion/Palpation: + abdomen tender (expected jeb incisional discomfort to palpation ) and abdomen soft [facility] Vital Signs (Past 12 Hours) Vital Signs Temp Pulse Resp BP Pulse Ox O2 Del Method 04/30/22 08:01 36.8 C 48 L 16 122/66 97 Room Air 04/30/22 04:16 37.0 C 59 L 18 114/58 L 97 Room Air 04/30/22 01:34 37.0 C 56 L 17 119/67 97 Room Air 04/29/22 22:29 36.8 C 57 L 18 109/67 98 Room Air 04/29/22 20:20 36.6 C 57 L 18 117/73 97 Room Air PG Care Time/CCT Total # of Minutes Spent Total Time Spent with Patient: Total time spent is greater than 50% in coordination of care (as documented) at patient's floor/unit and/or counseling patient: Coding Level of Care Code None Diagnoses Acute cholecystitis K81.0
[2022-04-30] MEDS: oxyCODONE HCL IR 5 MG TAB (IMMEDIATE RELEASE) PO PRN ×2 (08:20→12:56)
--- NOTE | 2022-05-02 14:53 | Discharge Summary ---
Date of Service May 02, 2022 Admission HPI Per Admitting Provider This is a 22-year-old male who presented to [facility] emergency department secondary to abdominal pain. Patient notes that the pain is nonradiating and primarily located the epigastric and right upper quadrant. He does not note any modifying factors other than that it seems to be worse after eating. The patient notes that he has noted some postprandial pain for approximately 1 month. He notes that this issue has been getting worse over the past week and became unbearable over the past 24 hours prompting his visit to the emergency department. He does note that he was previously in [place] where he did have similar complaints and he did have a gallbladder ultrasound at which time he was told he had gallstones. Patient denies any prior history of abdominal surgeries. In the emergency department the patient had labs and imaging which I independently reviewed. A CT scan of the abdomen pelvis was performed. This showed patient had mild periportal edema with a normal-appearing appendix. Patient had a gallbladder ultrasound that showed that the gallbladder was distended with sludge and tiny gallstones and pericholecystic edema. The gallbladder wall was thickened to approximately 6 mm and a positive sonographic Rodrigues sign was noted. The common bile duct was not noted to be dilated. The interpreting radiologist felt that this represented acute cholecystitis without biliary ductal dilatation. CBC revealed white blood cell count, hemoglobin, hematocrit, platelet count were all normal. Chemistry profile showed sodium, potassium, BUN, and creatinine were normal. Patient's total bilirubin is elevated at 1.3. His AST and ALT were elevated at 129 and 91. Alkaline phosphatase was normal. There is no elevation of patient's lipase. A COVID test has been ordered and is pending. 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 He notes that he has not consumed these substances and has been clean for approximately 6 months. At the time of my interview the patient was resting comfortably in bed and he was in no distress. Concerning past medical history other than history of substance abuse patient denies any additional medical problems. Patient denies any past surgical history. Patient has a history of substance abuse as noted above. Principal Diagnosis Acute cholecystitis Discharge Exam Constitutional WD/WN, vitals as above Gastrointestinal (Abdomen) Inspection/Auscultation: + abdominal surgical incision (dry) Percussion/Palpation: abdomen soft Discharge Data Allergies Allergy/AdvReac Type Severity Reaction Status Date / Time No Known Allergies Allergy Verified 05/02/22 14:36 Consultations 04/29/22 04:59 ED Decision to Admit Stat 04/29/22 07:14 Consult Gastroenterology Routine Procedures Performed Operation Date: 04/29/22 09:15 Actual Procedures p Laparoscopic Cholecystectomy with Cholangiogram(Not Applicable) - William Mejia DO Operation Date: 04/30/22 14:15 <No data on this case meets the specified criteria> Ordered Studies 04/29/22 00:10 CT abd pelvis IV con only Urgent 04/29/22 02:08 US gallbladder Urgent 04/29/22 12:30 [place] cholangiogram OR Routine Hospital Course (1) Acute cholecystitis: 22 y/o male presented presented to the ER with RUQ abdominal pain. White count was normal but U/S showed acute cholecystitis and LFTs were mildly elevated. He was admitted overnight and taken to the operating room the next day for laparoscopic cholecystectomy and IOC. Cholangiogram was negative, he was returned to the surgical floor. By the following morning he was able to tolerate diet and oral analgesics. His LFTs were downtrending. He was stable for discharge home. Total Time Total Time Spent Total Time Spent (In Minutes): 15 Discharge Plan Discharge Items Patient Disposition: Home - Self-Care Reason For Visit: CHOLECYSTITIS Discharge Diagnosis: laparoscopic cholecystectomy Activity: Per Instructions section Lifting: No more than 10 pounds Bathing Comment: may shower; no soaking in tubs/pools Exercise/Sports: Wait until after follow-up appointment Driving/Machine Use: no driving while taking any narcotics for pain Non-emergency contact: Surgeon Call non-emergency contact if: you have any medication questions, your symptoms worsen, your pain is not controlled, your pain is concerning for you, you have a fever, your temperature is above 101.5, your wound has increased redness, your wound has increased drainage and your wound pain has increased Follow-up/Referrals: William Mejia DO [Physician] - (Please call to schedule follow up in clinic within 2 weeks ) Omkar Palacio PA-C [Physician [employer]] - 05/02/22 2:30 pm (Hospital follow up. ) Brian Lowry DO [Primary Care Provider] - 05/14/22 8:45 am (Establish New pt appointmet. ) Diet: Regular Addtl Attending Provider Instructions: You may remove your outer surgical dressings (tape/gauze on 05/01/22). You have small white bandages over your incisions called steri-strips. You may shower with these on. They will tend to fall off on their own. You may purchase Tylenol and/or Ibuprofen over the counter if needed for additional pain control. -Tylenol 650mg orally every 4-6 hours, as needed for pain. Do not exceed >3grams of Acetaminophen within a 24 hour time period -Ibuprofen 200mg-600mg orally every 6-8 hours, as needed for pain. Take with food Pending Studies at Discharge: Yes Studies:: surgical pathology Stand-Alone Forms: [facility], Smoking Cessation Medications and DC Order Prescriptions: New oxycodone 5 mg tablet 5 - 10 mg PO .p3s-p2p PRN (Reason: pain, for initial therapy, max 6 tabs per day) Qty: 12 0RF ondansetron HCl 4 mg tablet 4 mg PO Q8H PRN (Reason: nausea and vomiting) Qty: 9 0RF No Action propranolol 20 mg tablet 20 mg PO DAILY Qty: 30 0RF Rx Instructions: ordered by [facility] ropinirole 0.25 mg tablet 0.25 mg PO DAILY Qty: 30 0RF Rx Instructions: Ordered by [facility] sertraline 50 mg tablet 50 mg PO DAILY Qty: 30 0RF Rx Instructions: ordered by [facility] trazodone 100 mg tablet 100 mg PO DAILY Qty: 30 0RF Rx Instructions: Ordered by [facility] hydroxyzine HCl 50 mg tablet 50 mg PO DAILY Qty: 30 0RF Rx Instructions: ordered by [facility] Discharge Orders: Discharge Order (Routine); Ordered 04/30/22 Ordered By: Adenike Medina Admission Data Admit Date/Time: 04/29/22 05:14 Attending Provider: William Mejia Admit Provider: William Mejia Primary Care Provider: Brian Lowry Other Providers: William Mejia ; Regina Torres ; Allen Vasquez ; Rosemary Alas ; Lyn Stoddard ; Carlee Vicente ; Kristen Escamilla ; Chang Jolley ; Maria Esther Pepper ; Courtney Antonio ; Sampson Matt ; Jomar Larry ; Rajesh Cloud ; Cipriano Dumont ; Lori Garcia ; Breana Noel ; Yi Alaniz ; Moraima Puckett ; Yordan Lancaster ; Cm Ramirez ; Thanh Velasquez ; Bienvenido Mart ; Ani Gabriel ; Gino Garcia Jr Other Interventions: Discharge Summary Assessment (RN) Last Done: 04/30/22 16:11 Coding Level of Care Code D/C DAY MANAGEMENT <30 MINS Diagnoses Acute cholecystitis K81.0
== END 2022-04-30 17:11 | disposition home or self-care (01) | DRG 419 ==
LOC: ED 20:57 → EDINP 04-29 05:14 → 3E 04-29 17:57